=== PATIENT | female | born 1965 | race African-American/Black ===

== ENCOUNTER 2019-08-23 10:11 | Outpatient (CLI) | payer BC ==
[~2019-08-23] VITALS: Ht 167.6 cm; Wt 97.5 kg
[~2019-08-23 10:11] MED LIST: CT SWABBABLE VALVE TRANS SET 1 EA INFUS.SET MC ONE; IOHEXOL-350 100 ML VIAL IV ONE; IV NS 0.9% 250 ML IV ONE
[2019-08-23 10:48] LABS: BASOPHILS % (AUTO) 0.4 % (0.0-2.0); EOSINOPHILS % (AUTO) 9.3 % (0.0-6.0); HEMATOCRIT 42 % (33-45); HEMOGLOBIN 13.4 g/dL (11.5-14.8); LYMPHOCYTES # (AUTO) 1.8 /CMM (0.8-4.8); LYMPHOCYTES % (AUTO) 27.7 % (20.0-44.0); MEAN CORPUSCULAR HGB CONC 32 g/dl (31.0-36.0); MEAN CORPUSCULAR VOLUME 81 fL (82-100); MONOCYTES # (AUTO) 0.5 /CMM (0.1-1.30); MONOCYTES % (AUTO) 7.6 % (2.0-12.0); NEUTROPHILS # (AUTO) 3.5 /CMM (1.8-8.9); PLATELET COUNT (AUTO) 330 /CMM (150-450); RED BLOOD CELL COUNT(AUTO) 5.22 MIL/uL (4.0-5.2); WHITE BLOOD COUNT (AUTO) 6.4 K/uL (4.3-11.0)
[2019-08-23] MEDS ORDERED: METOPROLOL TARTRATE INJ 5 MG/5 ML AMPUL ONE (10:55)
[2019-08-23 10:59] LABS: APPEARANCE,URINE CLEAR (CLEAR); BILIRUBIN,URINE NEGATIVE (NEGATIVE); BLOOD, URINE NEGATIVE Ery/uL (NEGATIVE); COLOR,URINE YELLOW (YELLOW); KETONES,URINE NEGATIVE (NEGATIVE); LEUKOCYTE ESTERASE ,URINE TRACE (NEGATIVE); NITRITE, URINE NEGATIVE (NEGATIVE); PROTEIN,URINE NEGATIVE (NEGATIVE); UGLUCOSE NEGATIVE (NEGATIVE); UROBILINOGEN,URINE 0.2 EU/dL (0.2)
[2019-08-23] MEDS ORDERED: NITROGLYCERIN 0.4 MG/TAB BOTTLE SL ONE (11:00)
[2019-08-23 11:01] LABS: BACTERIA,URINE Few /HPF (None Seen); SQUAMOUS EPITHELIAL CELL,UR 0-2 /HPF (None Seen); WBC,URINE 0-2 /HPF (0-3)
[2019-08-23 11:02] LABS: ALBUMIN 4.1 g/dL (3.4-5.0); BILIRUBIN,TOTAL 0.2 mg/dL (0.2-1.0); CALCIUM, SERUM 9.4 mg/dL (8.5-10.1); POTASSIUM 3.9 mmol/L (3.5-5.1); TOTAL PROTEIN, SERUM 8.4 g/dL (6.4-8.2)
--- NOTE | 2019-08-23 11:03 | NUR ---
AAOX3, BIB self sent by Dr Ortiz for CTCA. RR is even and unlabored with NAD noted. Skin is warm and dry. Denies chest pain at this moment. Placed on hospital gown and monitor. IVHL started at RAC 18g, patent. Will continuously monitor the patient.
[2019-08-23 11:15] LABS: THYROID STIMULATING HORMONE 0.435 uIU/mL (0.358-3.74); URIC ACID 4.9 mg/dL (2.6-7.2)
[2019-08-23] MEDS: METOPROLOL TARTRATE INJ 5 MG/5 ML AMPUL IVP PRN ×2 (11:15→11:20)
[2019-08-23 11:24] VITALS: BP 129/67
--- NOTE | 2019-08-23 11:37 | NUR ---
Patient was nauseous after CTCA procedure. Patient transferred to [facility] in stable condition.
--- NOTE | 2019-08-23 11:45 | NUR ---
RN NOTE PATIENT IN BED, AWAKE AND ALERT. POST CTA FROM [facility]. WAS GIVEN 10 MG LOPRESSOR AND 1 NITRO PRE PROCEDURE. NO COMPLAINS OF ANY PAIN NOR SOB AT THIS TIME. PATIENT STATES SHE'S HAD NAUSEA AFTER PROCEDURE. WAS GIVEN SOME ICE CHIPS AT BEDSIDE FOR RELIEF. VSS, 97.6F, 62, 18, 99%, 119/78. BED LOCKED AND IN LOWEST POSITION. CALL LIGHT WITHIN REACH, WILL CONTINUE TO MONITOR
--- NOTE | 2019-08-23 13:12 | NUR ---
RN NOTE PAGED DR MARTINEZ JUST FOR FYI THAT PATIENT IS HERE AND NO APPARENT DISTRESS. VITAS HAS BEEN STABLE. NO COMPLAINS OF ANY PAIN NOR SOB. DR MARTINEZ AWARE TO DC PATIENT AND WILL SEE HIM IN A WEEK. REMOVED IV SITE AND PATIENT AMBULATORY WITH STEADY GAIT REFUSED TO BE WHEELED OUT OF THE UNIT. WILL SPIN TANK TENDER PATIENT.
[2019-08-24 08:06] LABS: FOLIC ACID 10.4 ng/mL (>3.0)
== END 2019-08-23 23:59 | disposition home or self-care (01) ==
LOC: CT 10:11
PROVIDERS: ATTEND Internal Medicine Cardiovascular Disease
DX: Z00.00 Encounter for general adult medical examination without abnormal findings (principal); R07.9 Chest pain, unspecified; M47.814 Spondylosis without myelopathy or radiculopathy, thoracic region
CPT/HCPCS: 75574; 80053; 80061; 81001; 82306; 82607; 82728; 82746; 83036; 83540; 84439; 84443; 84550; 85025; J3490; J7050; Q9967; 36415; 81000-TC

== ENCOUNTER 2020-06-30 00:32 | Emergency (ER) | payer BC ==
[~2020-06-30] VITALS: Ht 167.6 cm; Wt 96.2 kg
[2020-06-30 00:32] VITALS: BP 134/77
== END 2020-06-30 00:51 | disposition home or self-care (01) ==
LOC: ER 00:34
DX: Z20.828 Contact with and (suspected) exposure to other viral communicable diseases (principal); Z80.9 Family history of malignant neoplasm, unspecified
CPT/HCPCS: 99283; C9803; U0003

== ENCOUNTER 2020-08-31 16:30 | Emergency (ER) | payer BC, OTHER ==
[~2020-08-31] VITALS: Ht 175.3 cm; Wt 99.8 kg
[2020-08-31 16:34] VITALS: BP 148/70
--- NOTE | 2020-08-31 16:42 | NUR ---
Patient discharged to home in stable condition. Written and verbal after care instructions given. Patient verbalizes understanding of instruction.
== END 2020-08-31 16:44 | disposition home or self-care (01) ==
LOC: ER 16:31
DX: Z20.828 Contact with and (suspected) exposure to other viral communicable diseases (principal); I10 Essential (primary) hypertension
CPT/HCPCS: 99283; C9803; U0003

== ENCOUNTER 2020-09-28 06:50 | Emergency (ER) | payer OTHER ==
[~2020-09-28] VITALS: Ht 175.3 cm; Wt 99.8 kg
[2020-09-28 06:54] VITALS: BP 134/65
== END 2020-09-28 07:10 | disposition home or self-care (01) ==
LOC: ER 06:53
DX: Z20.828 Contact with and (suspected) exposure to other viral communicable diseases (principal); I10 Essential (primary) hypertension
CPT/HCPCS: 99283; C9803; U0003